=== PATIENT | female | born 1960 | race Caucasian/White ===

== ENCOUNTER 2024-01-10 09:07 | Outpatient (CLI) | payer MEDICARE | END 2024-01-10 09:08 | disposition home or self-care (01) | LOC: CSHMRI 09:07 | PROVIDERS: ATTEND Family Medicine | DX: G91.9 Hydrocephalus, unspecified (principal); I67.89 Other cerebrovascular disease; G31.9 Degenerative disease of nervous system, unspecified; G93.89 Other specified disorders of brain | CPT/HCPCS: 70551 ==

== ENCOUNTER 2024-02-15 10:04 | Outpatient (CLI) | payer MEDICARE | END 2024-02-15 10:05 | disposition home or self-care (01) | LOC: CSHMRI 10:04 | PROVIDERS: ATTEND Neurological Surgery | DX: G91.0 Communicating hydrocephalus (principal); I67.89 Other cerebrovascular disease; G93.9 Disorder of brain, unspecified | CPT/HCPCS: 36415; 70553; 76376; 82565 ==